=== PATIENT | male | born 1990 | race Caucasian/White ===

== ENCOUNTER 2017-09-23 12:32 | Outpatient (CLI) | payer BC ==
[~2017-09-23 12:32] MED LIST: Gadobenate Dimeglumine 529 MG/1 ML (20ML VIAL) ONE
--- NOTE | 2017-09-23 17:43 | MRI ---
BRAIN MRI WITH AND WITHOUT CONTRAST: 09/23/17 COMPARISON: None. HISTORY: Sensory loss. TECHNIQUE: Multiplanar and multisequence MR imaging of the brain is provided with and without contrast. FINDINGS: The diffusion weighted imaging demonstrates no evidence for acute infarction. The axial gradient echo imaging demonstrates no evidence for intracranial hemorrhage. There are numerous scattered lesions of increased T2 and FLAIR signal within the deep subcortical and periventricular white matter bilaterally. This includes numerous subcortical white matter lesions in the left frontal region, multiple deep white matter lesions in the right frontal region, and bilater al periventricular lesions, most prominent on the right near the atrium of the lateral ventricle. The imaged paranasal sinuses/mastoid air cells demonstrate normal signal intensity. Regional bone mar row signal intensity is within normal limits. Sagittal FLAIR imaging demonstrates lesions of increased signal within the corpus callosum including the undersurface of the mid body and posterior body. The postcontrast imaging demonstrates numerous f oci of enhancement involving some of the scattered white matter lesions. This includes a small focus of enhancement within the medial left temporal lobe, two foci of enhancement in the right temporal lo be, focus of enhancement within the right parietal lobe and two foci of enhancement within the subcor tical white matter of left frontal lobe as well as two foci of enhancement in the subcortical white m atter of the right frontal lobe. No midline shift or mass effect. Regional bone marrow signal intensi ty appears within normal limits. IMPRESSION: White matter disease most consistent with multiple sclerosis. Foci of enhancement are consistent with areas of active demyelination. Dr. Marks made aware at 5pm via phone on 09/23/2017. POS: [facility]
--- NOTE | 2017-09-23 17:50 | MRI ---
CERVICAL SPINE MRI WITH AND WITHOUT CONTRAST 09/23/17 COMPARISON: None. HISTORY: Sensory loss. TECHNIQUE: Multiplanar and multisequence MR imaging of the cervical spine is provided with and without contrast. FINDINGS: There is no focal area of osseous marrow edema on the sagittal STIR imaging. No anterolisthesis or re trolisthesis is seen. C2-3: No central canal or neural foraminal stenosis. C3-4: No central canal or neural foraminal stenosis. C4-5: No central canal or neural foraminal stenosis. C5-6: There is a focus of T2 isointensity measuring 7 mm in the region of the right neural foramen gandhi ggesting right foraminal disc herniation with moderate associated right neural foraminal stenosis. No significant central canal or left neural foraminal stenosis. C6-7: No significant central canal or neural foraminal stenosis. C7-T1: No significant central canal and neural foraminal stenosis. There is a prominent T2 hyperintense lesion within the cervical cord at the C3-4 level on the right m easuring 4-5 mm. An additional smaller lesion is seen within the anterolateral aspect of the cord on the right at C4-5 measuring 3 mm. On the postcontrast imaging, both of these areas of increased T2 si gnal demonstrate enhancement. No abnormal enhancement is seen involving the imaged osseous structures or intervertebral disc. On the sagittal fat saturated postcontrast imaging, the area of enhancement within the right lateral aspect of the cervical cord measures 2.6 cm craniocaudal dimension x 6.2 cm transverse dimension. IMPRESSION: 1. Areas of abnormal enhanced T2 signal intensity identified within the right lateral aspect of the cervical cord at C3-C4 with enhancement, evidence of active demyelination. Dr. Marks made aware at 5pm via phone on 09/23/2017. 2. Incidental note made of a probable foraminal disc herniation on the right at C5-6 with associ ated right neural foraminal stenosis. POS: [facility]
--- NOTE | 2017-09-23 19:23 | MRI ---
THORACIC SPINE MRI WITH AND WITHOUT CONTRAST 09/23/17 COMPARISON: None. HISTORY: Sensory loss. TECHNIQUE: Multiplanar and multisequence MR imaging of the thoracic spine provided with and without contrast. FINDINGS: The sagittal STIR imaging demonstrates no evidence for osseous marrow edema. Thoracic vertebral body height and alignment is within normal limits. C7-T1: No significant central canal or neural foraminal stenosis. T1-2: Mild disc space narrowing and disc bulge with no central canal or neural foraminal stenosis. Small central disc protrusion noted at T1-2. T2-3: Disc space narrowing and disc desiccation noted. No significant central canal or neural foramin al stenosis. T3-4: Mild disc bulge with no significant central canal and neural foraminal stenosis. T4-5: There is a small central disc protrusion partially effacing the ventral thecal sac and leading to a mild degree of central canal stenosis. No significant neural foraminal stenosis. T5-6: There is a small central disc protrusion. There is disc space narrowing and disc desiccation. T here is no significant central canal or neural foraminal stenosis. T6-7: There is disc space narrowing with no significant central canal or neural foraminal stenosis. T7-8: There is disc space narrowing and disc desiccation with no significant central canal stenosis o r neural foraminal stenosis. Minimal disc bulge. T8-9: No significant central canal or neural foraminal stenosis. T9-10: No significant central canal or neural foraminal stenosis. T10-11: No central canal or neural foraminal stenosis. T11-12: No central canal or neural foraminal stenosis. T12-L1: no central canal or neural foraminal stenosis. Evaluation of the thoracic cord demonstrates T2 hyperintense thoracic cord lesions within the central aspect of the cord at the T9-10 level measuring 2 mm. There is a central T2 hyperintense cord lesion at T10-11 measuring 2-3 mm. Focal are of cord signal abnormality noted within the central/anterior c ord at T11-12 and posteriorly within the distal aspect of the cord at T12. The postcontrast imaging i s limited secondary to motion on the axial imaging without fat saturation. Fat saturated postcontrast imaging is limited on the basis of motion as well. There is a suggestion of enhancement involving th e distal cord lesions at the T12 level and the T10 level suggesting active demyelination. IMPRESSION: Foci of abnormal signal intensity are identified within the distal thoracic cord with enhancement, gandhi ggesting active demyelination. Dr. Marks made aware at 5pm via phone on 09/23/2017. POS: [facility]
== END 2017-09-23 12:33 | disposition home or self-care (01) ==
LOC: SCSMRI 12:32
PROVIDERS: ATTEND Psychiatry & Neurology Neurology
DX: R20.8 Other disturbances of skin sensation (principal); R90.82 White matter disease, unspecified
CPT/HCPCS: 70553; 72156; 72157; A9579

== ENCOUNTER 2017-09-27 15:07 | Inpatient (IN) | payer BC ==
[2017-09-27 18:16] VITALS: BMI 26.1
[2017-09-27] MEDS ORDERED: Temazepam 15 MG CAP PO PRN (18:44)
[2017-09-27 19:11] LABS: #Basophils 0.1 thou/uL (0.0-0.2); #Eosinphils 0.1 thou/uL (0.0-0.7); #Lymphocytes 2.2 thou/uL (1.20-3.40); #Monocytes 0.5 thou/uL (0.11-0.59); #Neutrophils 4.4 thou/uL (1.40-6.50); %Basophils 0.8 % (0.0-1.0); %Eosinophils 1.2 % (0.0-10.0); %Lymphocytes 30.7 % (21.0-51.0); %Monocytes 6.2 % (0.0-10.0); %Neutrophils 61.2 % (42.0-75.0); Hemoglobin 14.9 g/dL (14.0-18.0); Mean Corpuscular Hemoglobin 30.4 pg (27.0-31.0); Mean Corpuscular Volume 89.5 fl (80.0-94.0); Mean Platelet Volume 7.5 fL (7.4-10.4); Platelet Count 237 thou/uL (130-400); RBC Distribution Width 11.7 % (11.5-14.5); Red Blood Cell (RBC) Count 4.91 mill/uL (4.70-6.10); White Blood Cell (WBC) Count 7.2 thou/uL (4.8-10.8)
[2017-09-27 19:29] LABS: ALT (SGPT) 17 U/L (8-55); AST (SGOT) 18 U/L (5-34); Albumin 4.6 g/dL (3.5-5.0); Alkaline Phosphatase 70 U/L (40-150); Anion Gap 13 mmol/L (10-20); BUN (Urea Nitrogen) 19 mg/dL (8.9-20.6); Bilirubin, Total 0.6 mg/dL (0.2-1.2); CRP (Inflammatory) Less than 0.50 mg/dL (= or < 0.5); Calc. Creatinine Clearance 138 mL/min (70-130); Calcium 9.7 mg/dL (7.8-10.44); Carbon Dioxide 23 mmol/L (22-29); Chloride 104 mmol/L (98-107); Estimated GFR-MDRD 84; Globulin 3.7 g/dL (2.4-3.5); Glucose 93 mg/dL (70-105); Protein, Total 8.3 g/dL (6.0-8.3); Sodium 136 mmol/L (136-145)
[2017-09-27 19:48] LABS: Thyroid Stimulating Hormone 0.6883 uIU/mL (0.35-4.94); Vitamin D, 25 Hydroxy 22.1 ng/ml (> 30.0)
[2017-09-27] MEDS ORDERED: methylPREDNISolone Sod Succ 1 GM in Sodium Chloride 0.9% 250 ML 250 ML IVPB SCH (20:00)
[2017-09-27 20:10] LABS: Folate (Folic Acid) 13.3 ng/mL (7.0-31.4)
[2017-09-27] MEDS ORDERED: Sodium Chloride 0.9% 10 ML ONE (20:39)
--- NOTE | 2017-09-28 01:27 | HP ---
DATE OF ADMISSION: 09/27/2017 REASON FOR ADMISSION: MS exacerbation. HISTORY OF PRESENT ILLNESS: Mr. Parish is a pleasant 26-year-old male is being admitted fo r treatment of acute exacerbation. Patient had presented to my clinic on 09/22/2017 with complaint o f left eye blurry vision. He had reported that about approximately 1 year ago, he had noted blurry v ision in his left eye. He had seen ball sorter at that time and was told that he may have inflam mation in his left eyelid. He was given some form of eye drops, after which symptoms did improve in 1 week. He had another episode in June after he returned from [facility]. Again, at that time he h ad noted blurry vision in his left eye. He had seen ball sorter and had an extensive workup done which was told that he had inflammation in his left eyelid. I was given eye drops, but this time, h is symptoms did not improve. Then on 08/15/2017, he woke up with a sudden onset of tingling sensatio n in lower back, radiating down to the posterior aspect of the left thigh, lower leg, and foot. He n oticed when he sat down, he feels different temperature sensation on left compared to the right. Thi s resolved, but he continued to have tingling sensation in both feet that is constant over the past 2 -3 weeks. He also complained of having feeling off balance while walking, but denied any falls. He denied dysarthria, dysphagia, or difficulty with bowel and bladder. He had an MRI brain, C-spine, ce rvical spine, and thoracic spine done as outpatient. MRI brain showed multiple white matter lesions with foci of enhancement involving the some of the scattered white matter lesions including one in th e medial left temporal lobe and the right temporal lobe which are suggestive of active demyelination. He also had MRI of the cervical spine, which showed abnormal T-enhanced T2 signal intensity within the lateral aspect of the cervical cord at C3-C4. He also had MRI of the thoracic spine, which also showed foci of abnormal signal intensity and the distal thoracic cord with enhancement suggestive of active demyelination. Due to this actively enhancing lesions, patient is being admitted for IV stero id treatment. PAST MEDICAL HISTORY: None significant. PAST SURGICAL HISTORY: Significant for trauma and labral repair at 16 years of age and appendectomy in 2002. SOCIAL HISTORY: He denies smoking, alcohol use, or illicit drug use. He is a Ph.D. student. FAMILY HISTORY: Noncontributory. CURRENT MEDICATIONS: None. ALLERGIES: Include PENICILLIN. REVIEW OF SYSTEMS: As mentioned above in the HPI, otherwise negative. PHYSICAL EXAMINATION: VITAL SIGNS: Blood pressure 134/76, pulse of 77, temperature of 98.2, respirations of 16, O2 sats ar e 98% on room air. GENERAL: Well-developed, well-nourished male in no apparent distress. RESPIRATORY: Clear to auscultation bilaterally. CARDIOVASCULAR: Regular rate and rhythm. NEUROLOGIC: Mental status: Patient is awake, alert, oriented x3. Speech and language: Fluent spee ch. Cranial nerves: Pupils are 3 mm and reactive. Visual friedman are intact. Visual acuity is 20/3 0 in left eye and 20/20 in the right. Fundus exam was normal bilaterally. Extraocular muscles are i ntact. No nystagmus is noted. No ptosis noted. Sensation is intact and symmetrical. Face: Normal facial strength. Tongue and uvula are midline. Motor exam showed normal tone and bulk with a 5/5 s trength in both upper and lower extremities. Sensory exam showed sensory level to pinprick at T8 lev el. Deep tendon reflexes 2+ of flexion with both upper and lower extremities. Babinski: Plantar re sponses flexion bilaterally. Coordination intact to [id number] and finger tapping bilaterall y. Romberg is negative. Gait is normal gait. IMAGING STUDIES: MRI brain of the cervical spine and T-spine done as outpatient. I reviewed, findin gs are as noted in the HPI section. IMPRESSION: 1. Acute multiple sclerosis exacerbation. 2. Optic neuritis, due to #1. 3. Balance difficulty, due to #1. ASSESSMENT AND PLAN: Mr. Parish is a pleasant 26-year-old male who presented with an acute onset of left eye blurry vision and difficulty with balance. He had MRI brain in cervical and thora cic spine done, which showed multiple enhancing lesions in brain and the cervical and thoracic spinal cord. Based on this, he meets the criteria for multiple sclerosis. I have discussed at length with him regarding the diagnosis and explained that the treatment includes IV steroids for acute setting followed by disease-modifying therapy as outpatient for long-term. I have discussed at length regard ing different available disease-modifying therapy with him and his mother who was present at bedside. I have answered all their questions to their satisfaction. I will put him on IV Solu-Medrol 1 gram daily for 3 doses. He will be placed on Protonix 40 mg once a day for gastrointestinal prophylaxis. I have also placed him on Restoril 15 mg p.o. at bedtime p.r.n. for insomnia related to steroids.
[2017-09-28] MEDS ORDERED: methylPREDNISolone Sod Succ/PF 125 MG/2 ML VIAL IVP SCH (09:00)
[2017-09-28] MEDS: methylPREDNISolone Sod Succ 1 GM in Sodium Chloride 0.9% 250 ML 250 ML IVPB SCH (17:52)
[2017-09-29 06:56] VITALS: BP 133/61; TEMP 97.8
[2017-09-29 13:01] LABS: ANA Symphony (Qualitative) Negative (Negative); dsDNA IgG Antibody 2.4 IU/mL (<10 Negative)
[2017-09-29] MEDS: methylPREDNISolone Sod Succ 1 GM in Sodium Chloride 0.9% 250 ML 250 ML IVPB SCH (15:59)
--- NOTE | 2017-09-29 20:41 | PRG ---
DATE OF SERVICE: 09/28/2017 SUBJECTIVE: Mr. Parish is a pleasant 26-year-old male admitted with optic neuritis and MS exacerbation. He has been undergoing IV steroid treatment for acute MS exacerbation. He reports of no significant change in his symptoms since being admitted to the hospital. He denies any noticeable side effects from IV steroids. He denies any headache, fever, chills, chest pain, palpitation, naus ea, vomiting, abdominal pain. OBJECTIVE: VITAL SIGNS: Blood pressure of 133/61, pulse of 71, temperature of 97.8, respirations of 16, O2 sats 99% on room air. GENERAL: Well-developed, well-nourished male in no apparent distress. RESPIRATORY: Clear to auscultation bilaterally. CARDIOVASCULAR: Regular rate and rhythm. NEUROLOGICAL: Unchanged. LABORATORY DATA: Reviewed, which included CBC, CMP, sed rate, CRP, B12, folate, TSH, vitamin D and A NA which is significant for vitamin D level of 22.1, otherwise unremarkable. IMPRESSION: 1. Acute multiple sclerosis exacerbation. 2. Optic neuritis, due to #1. 3. Balance difficulty, due to #1. ASSESSMENT AND PLAN: Mr. Parish is a pleasant 26-year-old male with a recent episode of ba sen difficulty, numbness on lower extremities and optic neuritis was found to have multiple demyeli nating plaques that are active in both cerebral hemispheres as well as in cervical and thoracic spine . He is being admitted for treatment with IV steroids. He has tolerated the IV steroids well withou t any complications. I will continue him on IV methylprednisolone 1 gram daily for 2 more days. He will be discharged home tomorrow morning. He did have a lab work done which showed a low vitamin D o f at 22.1 for which I have advised him to take vitamin D 2000 IU on a daily basis. He will follow up in my clinic in 2 weeks post-discharge.
--- NOTE | 2017-09-30 01:25 | DIS ---
DATE OF ADMISSION: 09/27/2017 DATE OF DISCHARGE: 09/29/2017 ADMISSION DIAGNOSES: 1. Acute multiple sclerosis exacerbation. 2. Optic neuritis. 3. Balance difficulty. DISCHARGE DIAGNOSES: 1. Acute multiple sclerosis exacerbation. 2. Optic nerves. 3. Balance difficulty. HOSPITAL COURSE: Mr. Parish is a pleasant 26-year-old male who had presented to my clinic with the complaint of vision difficulty and balance difficulty along with temperature sensation loss in lower extremity on the left side. He had an MRI brain, cervical and thoracic spine done as outpat ient, which showed multiple demyelinating plaques in both cerebral hemispheres as well as cervical an d thoracic spinal cord. There are multiple actively enhancing lesions. For this reason, he was admi tted for treatment with IV steroids. After admission, I had started him on IV Solu-Medrol 1 gram shahid ly for a total of 3 days. He was placed on Protonix 40 mg p.o. for GI prophylaxis. He was also plac ed on Restoril 15 mg at bedtime p.r.n. for insomnia. He tolerated Solu-Medrol well without any compl ications. He has had completed 3 days of IV steroids. He has achieved maximum benefit of stay. He was planned for discharge to home. He will follow up in my clinic in 2 weeks post-discharge, at that time we will discuss further treatment options with disease modifying therapy. DISCHARGE PLAN: Discharge the patient to home. CONDITION: Stable. ACTIVITY: Ad gal. DIET: Regular diet. DISCHARGE MEDICATIONS: Medrol Dosepak, prescription was given to the patient. DISCHARGE FOLLOWUP: Follow up in my clinic in 2 weeks post-discharge. DISPOSITION: Discharge the patient to home.
== END 2017-09-29 17:35 | disposition home or self-care (01) | DRG 59 ==
LOC: ONC 16:10
PROVIDERS: ADMIT Psychiatry & Neurology Neurology; ATTEND Psychiatry & Neurology Neurology
DX: G35 Multiple sclerosis (principal); H46.8 Other optic neuritis; Z88.0 Allergy status to penicillin; R26.89 Other abnormalities of gait and mobility
CPT/HCPCS: 36415; 80053; 82306; 82607; 82746; 84443; 85025; 85652; 86038; 86140; 86225; A4216; J2930; J7050